=== PATIENT | male | born 1995 | race Caucasian/White ===

== ENCOUNTER 2023-03-31 11:14 | Outpatient (AMB) | payer OTHER, SELFPAY ==
--- NOTE | 2023-03-31 12:35 | AM.OFFWIN_ITS ---
Intake Vital Signs 03/31/23 12:41 Height 6 ft Weight 213 lb BMI 28.9 BP 122/86 Blood Pressure Location Rt brachial Position Sitting Pulse 84 Pulse Source Pulse Oximeter Temp 97 F Temp Source Temporal Artery Scan Pulse Oximetry (%) 98 Oxygen Delivery Method Room Air Intake Visit Reasons: [employer]/Sore throat [phone] Intake Note: Pt is here c/o sore throat for four days. Patient Tobacco Use Status: Never used Tobacco Allergies No Known Allergies Allergy (Verified 03/31/23 12:45) Medication List - Last Reconciled 03/31/23 by KELSEY Jesus- No Known Home Meds Do you need a note to return to daycare/school/sports/work: Yes HPI HPI Comments History of Present Illness Details 4 days of sore throat, worse in AM and a t night ears feel blocked exposed to sick nephew with RSV not UTD on vaccines has tried advil w/ some relief PFSH Social History Patient Tobacco Use Status: Never used Tobacco Review of Systems Const All systems reviewed & are unremarkable except as noted in HPI and below Physical Exam Vital Signs: Last Vital Signs Temp 97 F 03/31/23 12:41 Pulse 84 03/31/23 12:41 BP 122/86 03/31/23 12:41 Pulse Ox 98 03/31/23 12:41 Oxygen Delivery Method Room Air 03/31/23 12:41 BMI result Body Mass Index 28.9 Const Other: awake alert nad TM intact bilat, Left: erythematous, bulging loss of landmarks with mucoid effusion. Nares patent pharynx with diffuse erythema + ac adenopathy RRR LS CTAB Results AMB Rapid Strep AMB Rapid Strep Negative Last Edit by Tracie Mai CMA on 03/31/23 12:51 Assessment & Plan Assessment & Plan (1) Otitis media: Code(s): H66.90 - Otitis media, unspecified, unspecified ear Qualifiers: Chronicity: acute Laterality: left Otitis media type: mucoid Qualified Code(s): H65.112 - Acute and subacute allergic otitis media (mucoid) (sanguinous) (serous), left ear Plan: . (2) Pharyngitis: Code(s): J02.9 - Acute pharyngitis, unspecified Qualifiers: Pharyngitis/tonsillitis etiology: unspecified etiology Qualified Code(s): J02.9 - Acute pharyngitis, unspecified Plan: . Medications: New amoxicillin-pot clavulanate 875-125 mg 1 tab PO BID 7 days 14 tabs 0RF Patient Instructions: ok to use otc analgesics prn supportive care take ab as directed, with food Coding Level of Care Code Est Pt Level 3 (89468) Diagnoses Acute mucoid otitis media of left ear H65.112 Chronicity: acute Laterality: left Otitis media type: mucoid Pharyngitis, unspecified etiology J02.9 Pharyngitis/tonsillitis etiology: unspecified etiology
[2023-03-31 12:41] VITALS: BP 122/86; PULSE 84; TEMP 36.1; O2SAT 98; BMI 28.9
== END 2023-03-31 12:50 | disposition home or self-care (01) ==
LOC: HO.HMGWI 11:14
PROVIDERS: PCP Pediatrics
DX: H65.112 Acute and subacute allergic otitis media (mucoid) (sanguinous) (serous), left ear (principal); J02.9 Acute pharyngitis, unspecified; Z13.9 Encounter for screening, unspecified
CPT/HCPCS: 87880; 99213